=== PATIENT | female | born 1995 | race Caucasian/White ===

== ENCOUNTER → 2018-10-01 | Outpatient (CLI) | payer OTHER ==
--- NOTE | 2018-10-02 09:06 | RADIOLOGY REPORT (SQ) ---
EXAM DESCRIPTION: CT SINUSES FOR ENT COMPLETED DATE/TIME: 10/01/2018 4:32 pm REASON FOR STUDY: J32.9 CHRONIC SINUSITIS, UNSPECIFIED J32.9 CHRONIC SINUSITIS, UNSPECIFIED COMPARISON: None. TECHNIQUE: Noncontrast scanning through the paranasal sinuses using bone algorithm. Reconstructed MPR images reviewed. All images stored on PACS. Images acquired for image guided surgery. All CT scanners at this facility use dose modulation, iterative reconstruction, and/or weight based d osing when appropriate to reduce radiation dose to as low as reasonably achievable (ALARA). [facility]: Dose Right [facility]: CareDose [facility]: Dose Right [facility]: Teradose 4D [facility]: SilverLine Global RADIATION DOSE: 45.2 mGy. FINDINGS: NASAL PASSAGES: Clear. No polyps or masses. OSTEOMEATAL UNITS AND NASOFRONTAL DUCTS: Patent. Tiny bilateral agger nasi or Odalis cells. MAXILLARY SINUSES: Well-pneumatized and clear. Maxillary sinus outlets are patent but narrowed on cor onal images 51-60. ETHMOID SINUSES: Well-pneumatized and clear. SPHENOID SINUSES: Well-pneumatized and clear. No sphenoethmoid air cells. There are bilateral pneuma tized pterygoid recesses. Pneumatized right anterior clinoid. FRONTAL SINUSES: Well-pneumatized and clear. MASTOID AIR CELLS: Clear. ORBITS: Normal and symmetrical. NASAL SEPTUM: Mild leftward nasal septal deviation No nasal septal spurs. TEMPOROMANDIBULAR JOINTS: Normal. TURBINATES: No pneumatized turbinates. MUCOPERIOSTEAL THICKENING: No. MUCOCELE: No. OTHER: No other significant findings. IMPRESSION: NO EVIDENCE OF ACUTE SINUSITIS. TECHNICAL DOCUMENTATION: JOB ID: [id number] Quality ID # [id number]: Final reports with documentation of one or more dose reduction techniques (e.g., Au tomated exposure control, adjustment of the mA and/or kV according to patient size, use of iterative reconstruction technique) 2010 [employer]- All Rights Reserved Reading location - IP/workstation name: [email or web address]
== END ==
LOC: RAD 16:53
PROVIDERS: ATTEND Otolaryngology
DX: J32.9 Chronic sinusitis, unspecified (principal)
CPT/HCPCS: 70486

== ENCOUNTER → 2019-01-17 | Day surgery (SDC) | payer OTHER ==
[~2019-01-17] MED LIST: CEFAZOLIN 1 GM/D5W RTU 1 GM/50 ML RTUPB IV ONE; CEFAZOLIN 1 GM/D5W RTU 1 GM/50 ML RTUPB IV PRN; FAMOTIDINE INJ/PF 20 MG/2 ML SDV IV ONE; METOCLOPRAMIDE HCL INJ/PF 10 MG/2 ML SDV ONE
[2019-01-17 09:46] VITALS: BP 111/62
[2019-01-17 10:00] LABS: HEMATOCRIT 38.8 % (36.0-47.0); HEMOGLOBIN 13.4 g/dL (12.0-15.5); MEAN CORPUSCULAR HEMOGLOBIN 27.4 pg (27.0-33.4); MEAN CORPUSCULAR HGB CONC 34.4 g/dL (32.0-36.0); MEAN CORPUSCULAR VOLUME 80 fl (80-97); PLATELET COUNT 310 10^3/uL (150-450); RED BLOOD COUNT 4.86 10^6/uL (3.72-5.28); WHITE BLOOD COUNT 5.7 10^3/uL (4.0-10.5)
[2019-01-17 10:21] LABS: ANION GAP 11 (5-19); BLOOD UREA NITROGEN 20 mg/dL (7-20); CALCIUM 9.6 mg/dL (8.4-10.2); CARBON DIOXIDE 27 mmol/L (22-30); CHLORIDE 102 mmol/L (98-107); GLUCOSE 88 mg/dL (75-110); POTASSIUM 4.4 mmol/L (3.6-5.0); SODIUM 140.4 mmol/L (137-145)
== END ==
LOC: OROUT 09:24
PROVIDERS: ATTEND Otolaryngology
DX: J01.91 Acute recurrent sinusitis, unspecified (principal); J34.2 Deviated nasal septum; J34.3 Hypertrophy of nasal turbinates; M95.0 Acquired deformity of nose; R06.09 Other forms of dyspnea; J30.9 Allergic rhinitis, unspecified; R09.82 Postnasal drip; R09.81 Nasal congestion; J34.89 Other specified disorders of nose and nasal sinuses; Z53.20 Procedure and treatment not carried out because of patient's decision for unspecified reasons
CPT/HCPCS: 36415; 85027; 81025; 80048; J0690; J2765; S0028

== ENCOUNTER 2019-02-24 08:09 | Day surgery (SDC) | payer OTHER ==
[~2019-02-24 08:09] MED LIST changes: -CEFAZOLIN 1 GM/D5W RTU 1 GM/50 ML RTUPB IV ONE; -FAMOTIDINE INJ/PF 20 MG/2 ML SDV IV ONE; -METOCLOPRAMIDE HCL INJ/PF 10 MG/2 ML SDV ONE
[2019-02-24] MEDS ORDERED: LACTATED RINGERS 1000 ML IV PRN (08:54)
[2019-02-24] MEDS ORDERED: LIDOCAINE 0.5% INJ-PF (5 MG/ML) 50 ML SDV SUBCUT PRN (08:54)
[2019-02-24] MEDS ORDERED: SCOPOLAMINE HYDROBROMIDE 1.5 MG PATCH.TD72 TD PRN (08:54)
[2019-02-24] MEDS ORDERED: RINGERS SOLUTION,LACTATED 250 ML IV PRN (08:55)
[2019-02-24] MEDS ORDERED: PROPOFOL INJ 200 MG/20 ML VIAL IV ONE (09:49)
[2019-02-24] MEDS ORDERED: DEXAMETHASONE SOD PHOS INJ 10 MG/1 ML VIAL ONE (09:49)
[2019-02-24] MEDS ORDERED: FENTANYL CITRATE INJ/PF 250 MCG/5 ML AMPULE ONE (09:49)
[2019-02-24] MEDS ORDERED: MIDAZOLAM 2 MG/2 ML INJ ONE (09:49)
[2019-02-24] MEDS ORDERED: OXYMETAZOLINE HCL 0.05% NASAL SPRAY 15 ML BOTTLE ONE (10:00)
[2019-02-24] MEDS ORDERED: MINERAL OIL (STERILE) 10 ML VIAL ONE (10:00)
[2019-02-24] MEDS ORDERED: BUPIVACAINE HCL 0.5%-EPI 1:200000 INJ/PF 30 ML VIAL ONE (10:00)
[2019-02-24] MEDS ORDERED: BUPIVACAINE HCL 0.5%/EPI 1:200000 INJ 1.8 ML CARTRIDGE ONE (10:00)
[2019-02-24] MEDS ORDERED: OXYCODONE-ACETAMINOPHEN 5-325 MG TABLET ONE (15:17)
--- NOTE | 2019-02-24 20:34 | SURGICARE OPERATIVE REPORT E ---
[facility] Operative Report NAME: JADEN FAUSTIN AGE: 23Y DATE OF SURGERY: 02/24/2019 ROOM: PREOPERATIVE DIAGNOSES: 1. ACUTE RECURRENT SINUSITIS. 2. CHRONIC RHINOSINUSITIS. 3. NASAL SEPTAL DEVIATION. 4. RIGHT LISETTE BULLOSA. 5. BILATERAL INFERIOR TURBINATE HYPERTROPHY. 6. BILATERAL MIDDLE TURBINATE HYPERTROPHY. 7. CHRONIC NASAL CONGESTION. 8. NASAL DYSPNEA, OTHER FORMS. 9. HISTORY OF NASAL TRAUMA. 10. CHRONIC NASAL PAIN. POSTOPERATIVE DIAGNOSES: 1. ACUTE RECURRENT SINUSITIS. 2. CHRONIC RHINOSINUSITIS. 3. NASAL SEPTAL DEVIATION. 4. RIGHT LISETTE BULLOSA. 5. BILATERAL INFERIOR TURBINATE HYPERTROPHY. 6. BILATERAL MIDDLE TURBINATE HYPERTROPHY. 7. CHRONIC NASAL CONGESTION. 8. NASAL DYSPNEA, OTHER FORMS. 9. HISTORY OF NASAL TRAUMA. 10. CHRONIC NASAL PAIN. OPERATION: 1. SEPTORHINOPLASTY ADDRESSING THE BONY NASAL PYRAMID WITH BILATERAL OSTEOTOMIES. 2. RIGHT LISETTE BULLOSA REDUCTION VIA RIGHT TRANSNASAL RIGID SURGICAL ENDOSCOPY. 3. LEFT MIDDLE TURBINATE REDUCTION VIA LEFT TRANSNASAL RIGID SURGICAL ENDOSCOPY. 4. BILATERAL INFERIOR TURBINATE REDUCTION USING A SUBMUCOUS RESECTION TECHNIQUE. 5. IMAGE GUIDANCE, FUNCTIONAL ENDOSCOPIC SINUS SURGERY CONSISTING OF THE FOLLOWIN. IMAGE GUIDANCE BILATERAL FRONTAL SINUS BALLOON SINUPLASTY. 7. BILATERAL IMAGE GUIDANCE SPHENOID SINUS BALLOON SINUPLASTY. 8. BILATERAL IMAGE GUIDANCE BALLOON MAXILLARY SINUPLASTY. 9. LEFT MAXILLARY ANTROSTOMY FOLLOWING LEFT MAXILLARY BALLOON SINUS DILATION. SURGEON: NICOLE RENEE D.O. ANESTHESIA: General endotracheal tube. ANESTHESIA STAFF: SELAM Bravo ESTIMATED BLOOD LOSS: 20 mL FLUIDS: 1000 mL COMPLICATIONS: None. DRAINS: None. SPONGE COUNT: Verified. NEEDLE COUNT: Verified. MATERIALS FORWARDED SPECIMEN: None. FINDINGS: 1. Left nasal septal deviation involving bone and cartilage, and there was also a high nasal septal deflection of bone and cartilage to the left. 2. There was significant bilateral inferior turbinate hypertrophy. 3. Large right lisette bullosa. 4. Left middle turbinate hypertrophy with the turbinate compressed against the lateral nasal sidewall due to the septal deviation. 5. There were no sinonasal polyps or polypoid changes or discharge noted. 6. The patient was with a thick skin soft tissue nasal envelope. There was a bulbous nasal tip with inadequate support. The patient was with a broad nasal dorsum as well as alar base. The patient was with history of nasal trauma with splaying of nasal bones. Right greater than left nasal soft tissue fullness and scar at the right lateral nasal/tip skin. INDICATIONS: This is a 23-year-old white female patient who was seen and evaluated in the [place] otolaryngology office. The patient had been referred for and she complained of a history consisting of acute recurrent sinusitis as well as chronic sinusitis over the years. The patient reports an extensive history of acute recurrent sinusitis episodes requiring antibiotics over the years as well as chronic rhinosinusitis symptoms over the years. The patient, on clinic endoscopy and CT sinus imaging, was noted to have nasal septal deviation, narrowed sinus openings, turbinate hypertrophy, a large right lisette bullosa, and nasal congestion throughout. The patient had also reported a history of nasal trauma with splaying of the nasal bones/bony nasal pyramid. Since that time, the patient has had significant difficulty trying to wear glasses or sunglasses, which results in significant pressure and pain. After extensive discussion with the patient, recommendation and plan was made to proceed with septorhinoplasty with osteotomies to provide for narrowing of the nasal dorsum, functional endoscopic sinus surgery to consist of balloon sinuplasty of the frontal, maxillary, and sphenoid sinuses, and reduction of turbinate hypertrophy to include reduction of the right lisette bullosa as well. The patient was also aware that alar base narrowing would be performed at a later point in time if she was still concerned. She voiced an understanding of these described surgical plans, which she was comfortable with and desired to proceed with after canceling her first scheduled surgery due to being nervous and very anxious about the general anesthetic. The procedures and all of their risks and complications were discussed in detail with the patient, which she voiced an understanding of, agreed with, and consent was obtained. PROCEDURE: The patient was taken to the main operating room and was placed on the operating room table in the supine position. Appropriate monitors were placed. Using mask and IV access, general anesthesia was induced. The patient was then transorally intubated without difficulty. She was positioned and prepped for sinus and nasal surgery. The patient underwent a nasal examination with injection of local anesthetic with epinephrine to establish a nasal block. Two Afrin-soaked neuro patties were placed, one per nasal passage. The patient was then prepped and draped in a sterile fashion for sinus and nasal surgery. The Loved[employer]la image guidance system was set up and tested appropriately before beginning the case. At this point, the Afrin-soaked neuro patties were removed and the patient underwent a hemitransfixion incision with elevation of the mucoperichondrial and mucoperiosteal flaps without difficulty. The bony cartilaginous junction was identified and divided, and the most deviated portion of the septal cartilage and bone were removed without difficulty. There was a greater than 1.5 x 1.5 cm cartilaginous L-strut that was preserved. At this point, the turbinate bipolar wand was used to make two passes in each inferior turbinate followed by use of the [place] elevator to out fracture each inferior turbinate. At this point, the anterior portion of each inferior turbinate was entered with a pair of Inocencio scissors and a freer was used to perform a submucous dissection. At this point, the turbinate microdebrider system at a setting of 1500 RPM was used to perform submucous resection on each side. Next, the redundant/excessive anterior mucosa was trimmed and the margins were reapproximated with Chromic suture. At this point, the functional endoscopic sinus surgery portion of the case with image guidance was performed with use of image guidance balloons, sinus instrumentation, and bilateral transnasal rigid surgical endoscopy. The middle turbinates were first cross clamped with a straight Rosario to create central fractures. The right lisette bullosa was reduced with a straight Rosario clamp. The anterior margins of the middle turbinate/right lisette bullosa were resected with through biting instruments. Once complete, the middle turbinates were medialized and the frontal sinus balloon system was introduced under direct visualization, and the balloon was inflated in the frontal sinus recess on each side in multiple positions. Once complete, the sphenoid balloon was introduced and passed through the sphenoid os on each side and inflated. Once complete, the maxillary sinus balloon was used and introduced through the right and left maxillary sinus os and inflated. On the left side, due to the significant out fracturing of the uncinate process in proximity to the middle turbinate, a decision was made to proceed with a small left maxillary antrostomy, which was completed without difficulty. Once complete, all of the image guidance balloons had been passed off. At this point, the rhinoplasty portion of the case was addressed in the following manner. At this point, there was access gained for the lateral osteotomies and elevation of tissue in a subperiosteal plane on each side. There were also modified marginal incisions performed with elevation of the skin soft tissue envelope in a subperiosteal plane. Once complete, there was dorsal rasp work performed due to significant bony irregularities. This was followed by performing the osteotomies bilaterally, and inward mobilization of the bony nasal sidewalls. Once complete, there was a cartilaginous onlay graft that was fashioned over the cartilaginous mid vault of the nose and fixed in place with through and through 6-0 Prolene suture. Once complete, the nose was thoroughly irrigated and suctioned with reasonable hemostasis noted. NasoPore absorbable packing was placed in and around the area where the middle turbinate and sinus work had been performed. The patient had one Merocel pack placed per side and these were fixed at the caudal aspect with 4-0 Prolene suture. Once complete, the nose was cleaned and dried, followed by placement of Mastisol, Steri-Strips, and a [place] aluminum pressure splint. The patient was then returned to the anesthesia staff and was allowed to emerge from general anesthetic. The patient was extubated in the main operating room and was then transported to the post anesthesia recovery unit in stable condition. There were no complications. DICTATING PHYSICIAN: NICOLE RENEE D.O. [id number] PHY#: [id number] ID: [id number] JOB#: [id number] ACCT: [id number] cc:NICOLE RENEE D.O. >
== END 2019-02-24 16:22 | disposition home or self-care (01) ==
LOC: SC 08:09
PROVIDERS: ATTEND Otolaryngology
DX: J32.9 Chronic sinusitis, unspecified (principal); J34.89 Other specified disorders of nose and nasal sinuses; J34.2 Deviated nasal septum; J34.3 Hypertrophy of nasal turbinates; M95.0 Acquired deformity of nose; R06.09 Other forms of dyspnea; R09.82 Postnasal drip; R09.81 Nasal congestion; J30.9 Allergic rhinitis, unspecified; D64.9 Anemia, unspecified; G43.909 Migraine, unspecified, not intractable, without status migrainosus; Z91.040 Latex allergy status
CPT/HCPCS: 30420; 31240; 30140; 31298; 31256; J2250; J3490 ×4; J0690; J3010; J2704; J1100; 160